=== PATIENT | male | born 1965 | race Caucasian/White ===

== ENCOUNTER 2018-02-28 19:04 | Emergency (ER) | payer OTHER ==
[~2018-02-28] VITALS: Ht 188 cm; Wt 104.3 kg
[2018-02-28] MEDS ORDERED: ESZO3 PO (19:44)
[2018-02-28] MEDS ORDERED: LOPE2C PO (19:45)
[2018-02-28] MEDS ORDERED: GABA400 PO (19:45)
[2018-02-28] MEDS ORDERED: LOSARTAN POTAS100 MG PO (19:46)
[2018-02-28] MEDS ORDERED: METO100ER PO (19:46)
[2018-02-28] MEDS ORDERED: OMEPRAZOLE MAGN20 MG PO (19:46)
[2018-02-28] MEDS ORDERED: Zantac150 MG PO (19:47)
[2018-02-28] MEDS ORDERED: PROP60 PO (19:48)
[2018-02-28] MEDS ORDERED: AMLO10 PO (19:48)
[2018-02-28] MEDS ORDERED: TAMS.4ER PO (19:48)
[2018-02-28] MEDS ORDERED: VENL75ER PO (19:48)
== END 2018-02-28 20:38 | disposition home or self-care (01) ==
LOC: ER 19:04
DX: M79.89 Other specified soft tissue disorders (principal); Z88.2 Allergy status to sulfonamides; Z88.1 Allergy status to other antibiotic agents; Z79.899 Other long term (current) drug therapy; Z87.891 Personal history of nicotine dependence
CPT/HCPCS: 99281